=== PATIENT | female | born 1970 | race Caucasian/White ===

== ENCOUNTER 2017-09-04 18:05 | Emergency (ER) | payer SELFPAY | END 2017-09-04 18:15 | disposition home or self-care (01) | LOC: ERS 18:05 | DX: F15.10 Other stimulant abuse, uncomplicated (principal); F41.9 Anxiety disorder, unspecified; F32.9 Major depressive disorder, single episode, unspecified; Z71.6 Tobacco abuse counseling; F17.210 Nicotine dependence, cigarettes, uncomplicated | CPT/HCPCS: 99406 ==

== ENCOUNTER 2018-10-21 19:01 | Emergency (ER) | payer SELFPAY | END 2018-10-21 19:50 | disposition home or self-care (01) | LOC: ERS 19:01 | DX: Z00.00 Encounter for general adult medical examination without abnormal findings (principal); I47.1 Supraventricular tachycardia; F41.9 Anxiety disorder, unspecified; F32.9 Major depressive disorder, single episode, unspecified; F17.210 Nicotine dependence, cigarettes, uncomplicated | CPT/HCPCS: 99283 ==

== ENCOUNTER 2023-12-12 01:34 | Observation (INO) | payer OTHER, SELFPAY ==
[2023-12-12 04:37] LABS: #Basophils 0.05 10x3/uL (0.0-0.2); %Basophils 0.6 % (0.0-1.0); %Eosinophils 1.6 % (0.0-10.0); %Lymphocytes 37.2 % (21.0-51.0); %Monocytes 8.4 % (0.0-10.0); %Neutrophils 51.6 % (42.0-75.0); Hematocrit 37.5 % (36.0-47.0); Hemoglobin 12.5 g/dL (12.0-16.0); Mean Corpuscular HGB CONC 33.3 g/dL (32.0-36.0); Mean Corpuscular Hemoglobin 28.3 pg (27.0-31.0); Mean Platelet Volume 11.1 fL (7.4-10.4); Platelet Count 132 10x3/uL (130-400); RBC Distribution Width 13.5 % (11.5-14.5); Red Blood Cell (RBC) Count 4.41 mill/uL (4.20-5.40)
[2023-12-12 04:54] LABS: ALT (SGPT) 44 U/L (8-55); AST (SGOT) 31 U/L (5-34); Albumin 3.4 g/dL (3.5-5.0); Alkaline Phosphatase 64 U/L (40-110); Anion Gap 13 mmol/L (10-20); BUN (Urea Nitrogen) 12 mg/dL (9.8-20.1); Bilirubin, Total 0.5 mg/dL (0.2-1.2); Calc. Creatinine Clearance 0 mL/min (70-130); Calcium 9.3 mg/dL (7.8-10.44); Carbon Dioxide 22 mmol/L (22-29); Chloride 100 mmol/L (98-107); Estimated GFR 88; Globulin 4.6 g/dL (2.4-3.5); Glucose 253 mg/dL (70-105); Potassium 3.8 mmol/L (3.5-5.1); Sodium 131 mmol/L (136-145)
[2023-12-12 05:16] LABS: Troponin I 0.054 ng/mL (< 0.028)
[2023-12-12 08:05] LABS: Troponin I 0.052 ng/mL (< 0.028)
[2023-12-12] MEDS ORDERED: Aspirin Chewable 81 MG TAB ONE (08:54)
[2023-12-12 09:48] VITALS: BMI 36.6
[2023-12-12 10:08] LABS: Magnesium 1.6 mg/dL (1.6-2.6)
[2023-12-12 11:11] LABS: Troponin I 0.047 ng/mL (< 0.028)
[2023-12-12] MEDS: Magnesium Sulfate In Water 4 GM in Premix 1 BAG IVPB SCH (13:39)
[2023-12-12] MEDS ORDERED: Nitroglycerin 0.4 MG TAB (25 Tab Bottle) SL PRN (13:42)
[2023-12-12] MEDS ORDERED: Dextrose 5% in Water 1,000 ML IV PRN (13:47)
[2023-12-12] MEDS ORDERED: Calcium Carbonate 500 MG ChewTAB PO PRN (13:47)
[2023-12-12] MEDS ORDERED: Glucagon 1 MG/ML KIT IM PRN (13:47)
[2023-12-12] MEDS ORDERED: Dextrose 50% Abboject 50 ML SYRINGE SLOW IVP PRN (13:47)
[2023-12-12 13:53] LABS: Troponin I 0.026 ng/mL (< 0.028)
[2023-12-12 13:54] LABS: Hemoglobin A1c 9.1 % (4.0-6.0)
[2023-12-12] MEDS ORDERED: Metoprolol Tartrate 5 MG (5 mL) VIAL IVP PRN (14:03)
[2023-12-12] MEDS: Insulin Regular, Human 100 UNIT/ML 10 ML VIAL SC PRN ×2 (19:22→20:51)
[2023-12-12] MEDS: Famotidine 20 MG TAB PO SCH (20:52)
[2023-12-12] MEDS: Enoxaparin 40 MG (0.4 mL) SYRINGE SC SCH (20:53)
[2023-12-12] MEDS: Acetaminophen 325 MG TAB PO PRN (20:53)
[2023-12-13 05:43] LABS: Anion Gap 13 mmol/L (10-20); BUN (Urea Nitrogen) 12 mg/dL (9.8-20.1); Calc. Creatinine Clearance 121 mL/min (70-130); Calcium 8.8 mg/dL (7.8-10.44); Carbon Dioxide 21 mmol/L (22-29); Chloride 107 mmol/L (98-107); Estimated GFR 92; Glucose 150 mg/dL (70-105); Potassium 4.3 mmol/L (3.5-5.1); Sodium 137 mmol/L (136-145)
[2023-12-13] MEDS ORDERED: Regadenoson 0.4 MG/5 ML SYRINGE ONE (09:20)
[2023-12-13] MEDS: Aspirin Chewable 81 MG TAB PO SCH (11:40)
[2023-12-13 12:41] VITALS: TEMP 97.8
[2023-12-13 17:05] VITALS: BP 140/83
== END 2023-12-13 17:20 ==
LOC: EEVIPCON 01:34 → ERS 01:34 → ERHOLD 09:31 → 2SW 16:39
PROVIDERS: ADMIT Internal Medicine; ATTEND Hospitalist
DX: R00.0 Tachycardia, unspecified (principal); R00.2 Palpitations; E66.9 Obesity, unspecified; F41.9 Anxiety disorder, unspecified; N18.2 Chronic kidney disease, stage 2 (mild); E11.22 Type 2 diabetes mellitus with diabetic chronic kidney disease; F15.90 Other stimulant use, unspecified, uncomplicated; E83.42 Hypomagnesemia; E87.1 Hypo-osmolality and hyponatremia; Z90.49 Acquired absence of other specified parts of digestive tract; Z90.89 Acquired absence of other organs; F17.200 Nicotine dependence, unspecified, uncomplicated; Z92.89 Personal history of other medical treatment; Z68.36 Body mass index [BMI] 36.0-36.9, adult
CPT/HCPCS: 36415; 36416; 71045; 78452; 80048; 80053; 83036; 83735; 84484; 85025; 93005; 93017; 96372; 96374; A9502; G0378; J1650; J1815; J2785; J3475

== ENCOUNTER 2024-01-04 10:15 | Inpatient (IN) | payer OTHER, SELFPAY ==
[2024-01-04] MEDS ORDERED: Adenosine 6 mg (2 mL) VIAL ONE (10:34)
[2024-01-04 10:57] LABS: #Basophils 0.07 10x3/uL (0.0-0.2); %Basophils 0.7 % (0.0-1.0); %Eosinophils 1.7 % (0.0-10.0); %Lymphocytes 23.8 % (21.0-51.0); %Neutrophils 64.9 % (42.0-75.0); Hematocrit 43.2 % (36.0-47.0); Hemoglobin 13.6 g/dL (12.0-16.0); Mean Corpuscular HGB CONC 31.5 g/dL (32.0-36.0); Mean Corpuscular Hemoglobin 28.1 pg (27.0-31.0); Mean Corpuscular Volume 89.3 fL (78.0-98.0); Mean Platelet Volume 11.1 fL (7.4-10.4); Platelet Count 153 10x3/uL (130-400); Red Blood Cell (RBC) Count 4.84 mill/uL (4.20-5.40)
[2024-01-04 11:44] LABS: ALT (SGPT) 39 U/L (8-55); AST (SGOT) 36 U/L (5-34); Albumin 3.4 g/dL (3.5-5.0); Alkaline Phosphatase 65 U/L (40-110); Anion Gap 13 mmol/L (10-20); BUN (Urea Nitrogen) 13 mg/dL (9.8-20.1); Bilirubin, Total 0.4 mg/dL (0.2-1.2); Calc. Creatinine Clearance 0 mL/min (70-130); Calcium 9.5 mg/dL (7.8-10.44); Carbon Dioxide 26 mmol/L (22-29); Chloride 101 mmol/L (98-107); Estimated GFR 79; Globulin 4.7 g/dL (2.4-3.5); Glucose 266 mg/dL (70-105); Magnesium 1.8 mg/dL (1.6-2.6); Potassium 4.2 mmol/L (3.5-5.1); Protein, Total 8.1 g/dL (6.0-8.3); Sodium 136 mmol/L (136-145)
[2024-01-04] MEDS ORDERED: Calcium Carbonate 500 MG ChewTAB PO PRN (15:24)
[2024-01-04] MEDS ORDERED: Senokot S 8.6-50 MG TAB PO PRN (15:24)
[2024-01-04] MEDS ORDERED: Ondansetron PF 4 MG/2 ML Vial IVP PRN (15:24)
[2024-01-04] MEDS ORDERED: Ondansetron ODT 4 MG TAB PO PRN (15:24)
[2024-01-04] MEDS ORDERED: Dextrose 5% in Water 1,000 ML IV PRN (16:38)
[2024-01-04] MEDS ORDERED: Glucagon 1 MG/ML KIT IM PRN (16:38)
[2024-01-04] MEDS ORDERED: Insulin Lispro 100 UNIT/ML 10 ML VIAL SC PRN (16:38)
[2024-01-04] MEDS ORDERED: Dextrose 50% Abboject 50 ML SYRINGE SLOW IVP PRN (16:38)
[2024-01-04 17:00] LABS: Troponin I 0.022 ng/mL (< 0.028)
[2024-01-04 20:11] LABS: Troponin I 0.024 ng/mL (< 0.028)
[2024-01-04] MEDS: Acetaminophen 325 MG TAB PO PRN (21:52)
[2024-01-04 22:15] VITALS: BMI 44.4
[2024-01-04] MEDS: Sodium Chloride 0.9% 1,000 ML IV SCH (22:52)
[2024-01-05 03:42] LABS: Hemoglobin A1c 8.4 % (4.0-6.0)
[2024-01-05 03:47] LABS: #Basophils 0.04 10x3/uL (0.0-0.2); %Basophils 0.4 % (0.0-1.0); %Eosinophils 2.2 % (0.0-10.0); %Monocytes 6.9 % (0.0-10.0); %Neutrophils 53.5 % (42.0-75.0); Hematocrit 37.9 % (36.0-47.0); Hemoglobin 12.3 g/dL (12.0-16.0); Mean Corpuscular HGB CONC 32.5 g/dL (32.0-36.0); Mean Corpuscular Hemoglobin 27.9 pg (27.0-31.0); Mean Corpuscular Volume 85.9 fL (78.0-98.0); Platelet Count 133 10x3/uL (130-400); Red Blood Cell (RBC) Count 4.41 mill/uL (4.20-5.40)
[2024-01-05 03:56] LABS: ALT (SGPT) 39 U/L (8-55); AST (SGOT) 39 U/L (5-34); Albumin 3.4 g/dL (3.5-5.0); Alkaline Phosphatase 66 U/L (40-110); Anion Gap 14 mmol/L (10-20); BUN (Urea Nitrogen) 15 mg/dL (9.8-20.1); Bilirubin, Total 0.5 mg/dL (0.2-1.2); Calc. Creatinine Clearance 124 mL/min (70-130); Calcium 9.8 mg/dL (7.8-10.44); Carbon Dioxide 26 mmol/L (22-29); Chloride 104 mmol/L (98-107); Estimated GFR 79; Globulin 4.6 g/dL (2.4-3.5); Glucose 146 mg/dL (70-105); Magnesium 1.9 mg/dL (1.6-2.6); Sodium 140 mmol/L (136-145)
[2024-01-05] MEDS: Atorvastatin Calcium 10 MG TAB PO SCH (08:36)
[2024-01-05] MEDS: Aspirin Chewable 81 MG TAB PO SCH (08:36)
[2024-01-05] MEDS: Enoxaparin 40 MG (0.4 mL) SYRINGE SC SCH (08:36)
[2024-01-05] MEDS: metFORMIN 500 MG TAB PO SCH (08:41)
[2024-01-05] MEDS: FLU (Fluarix Triv) TS24-25(6MOS UP)/PF 45 MCG/0.5 ML Syringe IM ONE (11:20)
[2024-01-05] MEDS: Mometasone 200 MCG/Formoterol 5 MCG 120 PUFF INHALER INH SCH (11:29)
[2024-01-05] MEDS: Insulin Lispro 100 UNIT/ML 10 ML VIAL SC PRN (11:32)
[2024-01-05] MEDS: Albuterol 2.5 MG (3 mL) NEB NEB SCH (18:55)
[2024-01-06] MEDS ORDERED: Propofol 1,000 MG/100 ML VIAL IV ONE (16:58)
[2024-01-06] MEDS ORDERED: PHENYLEPHRINE-NS 100 MCG/ML 10 ML SYRINGE ONE (16:58)
[2024-01-06] MEDS ORDERED: Glycopyrrolate 0.2 MG/ML 5 ML SYRINGE ONE (16:58)
[2024-01-06] MEDS ORDERED: fentaNYL 50 mcg/mL 1 mL Vial ONE ×2 (17:05→20:06)
[2024-01-06] MEDS ORDERED: ePHEDrine Sulfate 50 MG/10 ML VIAL ONE (17:54)
[2024-01-06] MEDS ORDERED: DOPamine 400 MG/D5W 250 ML 0 ML ONE (17:59)
[2024-01-06] MEDS ORDERED: Isoproterenol 0.2 MG/1 ML AMP ONE (18:02)
[2024-01-06] MEDS ORDERED: Promethazine HCl 25 MG/ML VIAL IM PRN (18:35)
[2024-01-06] MEDS ORDERED: Ondansetron HCl/PF 4 MG/2 ML Vial IVP PRN (18:35)
[2024-01-07] MEDS: Acetaminophen/Codeine 30-300mg Tablet PO PRN (00:03)
[2024-01-07] MEDS: Sodium Chloride 0.9% 500 ML IV SCH (05:03)
[2024-01-07] MEDS: Sodium Chloride 0.9% 1,000 ML IV SCH (06:06)
[2024-01-07 09:08] VITALS: BP 94/57
[2024-01-07 12:56] VITALS: TEMP 97.8
[2024-01-07] MEDS: Acetaminophen 325 MG TAB PO PRN (14:41)
== END 2024-01-07 16:06 | DRG 274 ==
LOC: ERS 10:15 → SUATTDRO 10:15 → ERHOLD 15:12 → EEVIPCON 15:12 → 2SW 21:05
PROVIDERS: ADMIT Internal Medicine; ATTEND Family Medicine
PROC: 02583ZZ Destruction of Conduction Mechanism, Percutaneous Approach (ICD-10-PCS; principal; 2024-01-04)
PROC: 4A023FZ Measurement of Cardiac Rhythm, Percutaneous Approach (ICD-10-PCS; 2024-01-04)
PROC: 4A0234Z Measurement of Cardiac Electrical Activity, Percutaneous Approach (ICD-10-PCS; 2024-01-04)
DX: I47.10 Supraventricular tachycardia, unspecified (principal); Z68.41 Body mass index [BMI] 40.0-44.9, adult; N18.2 Chronic kidney disease, stage 2 (mild); E11.22 Type 2 diabetes mellitus with diabetic chronic kidney disease; E78.5 Hyperlipidemia, unspecified; I12.9 Hypertensive chronic kidney disease with stage 1 through stage 4 chronic kidney disease, or unspecified chronic kidney disease; F17.210 Nicotine dependence, cigarettes, uncomplicated; E66.9 Obesity, unspecified; G47.30 Sleep apnea, unspecified; I95.81 Postprocedural hypotension; Z90.49 Acquired absence of other specified parts of digestive tract; Z79.82 Long term (current) use of aspirin; Z79.84 Long term (current) use of oral hypoglycemic drugs; Z79.899 Other long term (current) drug therapy
CPT/HCPCS: 36415; 36416; 71045; 80053; 83036; 83735; 84443; 84484; 85025; 90656; 93005; 93010; 93306; 93623; 93653; 94640; 94664; 94760; 96374; C1730; C1732; C1760; C1894; C2630; J0153; J1265; J1650; J1815; J2704; J3010; J7030; J7611

== ENCOUNTER 2024-12-08 13:52 | Outpatient (CLI) | payer OTHER | END 2024-12-08 13:53 | disposition home or self-care (01) | LOC: BICMAMMO 13:52 | PROVIDERS: ATTEND Family Medicine | DX: Z12.31 Encounter for screening mammogram for malignant neoplasm of breast (principal); Z80.3 Family history of malignant neoplasm of breast | CPT/HCPCS: 77063; 77067 ==